=== PATIENT | female | born 1985 | race Caucasian/White ===

== ENCOUNTER 2017-03-17 15:57 | Emergency (ER) | payer OTHER ==
[~2017-03-17] VITALS: Ht 162.6 cm; Wt 72.7 kg
[2017-03-17] MEDS ORDERED: LEVO500 PO (16:28)
[2017-03-17] MEDS: SODIUM CHLORIDE 0.9% 1,000 ML IV ONE (17:48)
[2017-03-17] MEDS: DiphenhydrAMINE HCL 50 MG/ML VIAL IVP ONE (17:49)
[2017-03-17] MEDS: MethylPREDNISolone SOD SUCC 125 MG/2 ML VIAL IVP ONE (17:49)
[2017-03-17] MEDS: FAMOTIDINE 40 MG in SODIUM CHLORIDE 0.9% 100 ML IV ONE (17:55)
[2017-03-17 19:37] VITALS: BP 118/78
== END 2017-03-17 19:39 | disposition home or self-care (01) ==
LOC: EMS 16:00
DX: T36.8X5A Adverse effect of other systemic antibiotics, initial encounter (principal); Y92.9 Unspecified place or not applicable
CPT/HCPCS: 96365; 96375; 99284; J1200; J2930; J3490; J7030; J7050

== ENCOUNTER 2025-02-20 21:14 | Emergency (ER) | payer OTHER ==
[~2025-02-20] VITALS: Ht 160 cm; Wt 69.8 kg
[~2025-02-20 21:14] MED LIST: LEVO-72 PO
[2025-02-20 21:35] VITALS: BP 126/82; PULSE 71; RESP 16; TEMP 98.4; O2SAT 100
[2025-02-20] MEDS ORDERED: ACET-66 PO (22:43)
[2025-02-20] MEDS ORDERED: IBUP-1554 PO (22:43)
[2025-02-20] MEDS: ACETAMINOPHEN 500 MG TABLET PO ONE (22:52)
[2025-02-20] MEDS: IBUPROFEN 600 MG TABLET PO ONE (22:53)
== END 2025-02-20 23:06 | disposition home or self-care (01) ==
LOC: EMS 21:14
DX: S00.93XA Contusion of unspecified part of head, initial encounter (principal); V49.40XA Driver injured in collision with unspecified motor vehicles in traffic accident, initial encounter; Y93.89 Activity, other specified; Y92.410 Unspecified street and highway as the place of occurrence of the external cause; Y99.8 Other external cause status
CPT/HCPCS: 99283